=== PATIENT | male | born 1945 | race Caucasian/White ===

== ENCOUNTER → 2016-10-09 | Outpatient (CLI) | payer MEDICARE, BC, OTHER ==
[~2016-10-09] VITALS: Ht 185.4 cm; Wt 76.0 kg
[~2016-10-09] MED LIST: ALLE180T33 PO; COLA100C PO; FINA5TAB2 PO; FLON0.054; FLUT1POW2; GAVISUS PO; GLUC1CAP9 PO; LIDOCAINE 2% INJ 100 MG/5 ML SDV (FOR ANES.) As Ordered ONE; LIPI10TA PO; METO10TA2 PO; NS 1,000 ML IV SCH; OMEP20CA3 PO; PANT40TA2 PO; PROPOFOL 200 MG/20 ML VIAL As Ordered ONE; SALM10002 PO; SIME1CAP PO; SUCR1TA PO; SYST0.3G OP; TRAV04OPD OU; TUMS500C PO; TYLE325T5 PO; VITA10002 PO; VITATAB54 PO; VITMTA PO; flaxseed meal PO
--- NOTE | 2016-10-09 07:44 | ROOR ---
Patient Name: Pola Acuna Procedure Date: 10/09/2016 7:30 AM Date of : 1945 Age: 71 Room: [facility] Gender: Male Note Status: Finalized Procedure: Upper GI endoscopy Indications: Heartburn, Failure to respond to medical treatment Providers: Phan MACHADO MD Referring MD: Tyrone Cardenas MD Requesting Provider: Medicines: Monitored Anesthesia Care Complications: No immediate complications. Procedure: Pre-Anesthesia Assessment: - The heart rate, respiratory rate, oxygen saturations, blood pressure, adequacy of pulmonary ventilation, and response to care were monitored throughout the procedure. The Endoscope was introduced through the mouth, and advanced to the second part of duodenum. The upper GI endoscopy was accomplished without difficulty. The patient tolerated the procedure well. Findings: Diffuse candidiasis was found in the entire esophagus. The exam was otherwise without abnormality. Impression: - Monilial esophagitis. - The examination was otherwise normal. - No specimens collected. Recommendation: - Nystatin suspension 100,000 units PO QID for 2 weeks. - (the script was sent to your pharmacy on file) Phan Machado MD Phan MACHADO MD 10/09/2016 7:43:19 AM This report has been signed electronically. Number of Addenda: 0 Note Initiated On: 10/09/2016 7:30 AM Estimated Blood Loss: Estimated blood loss: none.
--- NOTE | 2016-10-09 08:08 | ROOR ---
Patient Name: Pola Acuna Procedure Date: 10/09/2016 7:33 AM Date of : 1945 Age: 71 Room: [facility] Gender: Male Note Status: Finalized Procedure: Colonoscopy Indications: High risk colon cancer surveillance: Personal history of colonic polyps Providers: Phan MACHADO MD Referring MD: Tyrone Cardenas MD Requesting Provider: Medicines: Monitored Anesthesia Care Complications: No immediate complications. Procedure: Pre-Anesthesia Assessment: - The heart rate, respiratory rate, oxygen saturations, blood pressure, adequacy of pulmonary ventilation, and response to care were monitored throughout the procedure. The Colonoscope was introduced through the anus and advanced to the cecum, identified by appendiceal orifice and ileocecal valve. The colonoscopy was performed without difficulty. The patient tolerated the procedure well. The quality of the bowel preparation was fair. Findings: The perianal and digital rectal examinations were normal. A 10 mm polyp was found in the cecum. The polyp was sessile. The polyp was removed with a piecemeal technique using a cold snare. Resection and retrieval were complete. A 6 mm polyp was found in the ascending colon. The polyp was flat. The polyp was removed with a cold snare. Resection and retrieval were complete. (EXAM: Complete, PREP: Fair/Adequate) Impression: - (EXAM: Complete, PREP: Fair/Adequate) - One 10 mm polyp in the cecum, removed piecemeal using a cold snare. Resected and retrieved. - One 6 mm polyp in the ascending colon, removed with a cold snare. Resected and retrieved. - Moderate internal hemorrhoids. - The exam was otherwise normal to the cecum. Recommendation: - Telephone endoscopist for pathology results in 2 weeks. - Repeat colonoscopy in 1 year because the bowel preparation was suboptimal. - Repeat colonoscopy in 1 year for surveillance after piecemeal polypectomy. Phan Machado MD Phan MACHADO MD 10/09/2016 8:08:15 AM This report has been signed electronically. Number of Addenda: 0 Note Initiated On: 10/09/2016 7:33 AM Estimated Blood Loss: Estimated blood loss: none.
[2016-10-09 10:17] VITALS: BP 110/69
== END ==
LOC: M OPP 05:59
PROVIDERS: ATTEND Internal Medicine Gastroenterology
DX: Z09 Encounter for follow-up examination after completed treatment for conditions other than malignant neoplasm (principal); D12.0 Benign neoplasm of cecum; D12.2 Benign neoplasm of ascending colon; K64.8 Other hemorrhoids; R12 Heartburn; B37.81 Candidal esophagitis; I95.9 Hypotension, unspecified; M48.00 Spinal stenosis, site unspecified; I49.9 Cardiac arrhythmia, unspecified; E78.00 Pure hypercholesterolemia, unspecified; K74.60 Unspecified cirrhosis of liver; M19.90 Unspecified osteoarthritis, unspecified site; H40.9 Unspecified glaucoma; G62.9 Polyneuropathy, unspecified; Z87.891 Personal history of nicotine dependence; Z79.899 Other long term (current) drug therapy; Z79.51 Long term (current) use of inhaled steroids; Z88.1 Allergy status to other antibiotic agents

== ENCOUNTER → 2017-06-24 | Outpatient (REF) | payer MEDICARE, BC, OTHER ==
[~2017-06-24] MED LIST changes: -COLA100C PO; +COLA100C5 PO; -LIDOCAINE 2% INJ 100 MG/5 ML SDV (FOR ANES.) As Ordered ONE; -NS 1,000 ML IV SCH; -PROPOFOL 200 MG/20 ML VIAL As Ordered ONE
== END ==
LOC: M SMT 13:20
PROVIDERS: ATTEND Nurse Practitioner Women's Health
DX: N40.1 Benign prostatic hyperplasia with lower urinary tract symptoms (principal)
CPT/HCPCS: 81001; 87086; G0463

== ENCOUNTER 2017-09-02 07:40 | Day surgery (SDC) | payer MEDICARE, BC, OTHER ==
[~2017-09-02] VITALS: Ht 185.4 cm; Wt 78.0 kg
[~2017-09-02 07:40] MED LIST changes: +IPRA6SP
[2017-09-02] MEDS ORDERED: LR 1,000 ML IV SCH (08:00)
[2017-09-02] MEDS ORDERED: LevoFLOXacin IV 500 MG in APPROPRIATE DILUENT 1 EA IV ONE (08:00)
[2017-09-02] MEDS ORDERED: ONDANSETRON 4MG/2ML VIAL (J2405) As Ordered ONE (09:56)
[2017-09-02] MEDS ORDERED: fentaNYL 100 MCG/2 ML INJECTION (J3010) As Ordered ONE (09:56)
[2017-09-02] MEDS ORDERED: LIDOCAINE 2% INJ 100 MG/5 ML SDV (FOR ANES.) As Ordered ONE (09:56)
[2017-09-02] MEDS ORDERED: PROPOFOL 200 MG/20 ML VIAL As Ordered ONE (09:56)
[2017-09-02] MEDS ORDERED: MIDAZOLAM INJ 2 MG/2 ML VIAL (J2250) As Ordered ONE (09:56)
[2017-09-02] MEDS ORDERED: LIDOCAINE 2% 5ML JELLY UROJET As Ordered ONE (10:24)
--- NOTE | 2017-09-02 11:30 | ROOPDOC ---
[facility] Report Of Operation Report of Operation DATE OF PROCEDURE: 09/02/17 PREPROCEDURE DIAGNOSES: Benign Prostatic Hypertrophy (BPH) with urinary obstruction and Lower Urinary Tract Symptoms (LUTS). POSTPROCEDURE DIAGNOSES: Benign Prostatic Hypertrophy (BPH) with urinary obstruction and Lower Urinary Tract Symptoms. (LUTS). PROCEDURE: UroLift Prostatic Urethral Lift, Cystoscopy. SURGEON: Telma Ford MD ELECTRICAL TEST TECHNICIAN: None ANESTHESIA: Conscious sedation. OPERATIVE INDICATIONS: This is a 72 year old male with BPH with LUTS refractory to medical therapy, here for the above procedure. DESCRIPTION OF PROCEDURE: The patient was brought to the operating room and conscious sedation was administered. He was then placed in the dorsal lithotomy position and prepped and draped in the usual sterile fashion. Lidocaine gel was then inserted into the urethra and held in for few minutes. A 20Fr cystoscope was inserted into the bladder. The cystoscopy bridge was replaced with a UroLift delivery device. The first treatment site was the patient's left side approximately 2cm distal to the bladder neck. The distal tip of the delivery device was then angled laterally approximately 20 degrees at this position to compress the lateral lobe. The trigger was pulled, thereby deploying the needle containing the implant through the prostate. The needle was then retracted, allowing one end of the implant to be delivered to the capsular surface of the prostate. The implant was then tensioned to assure capsular seating and removal of slack monofilament. The device was then angled back toward midline and slowly advanced proximally (typically 3 to 4mm) until cystoscopic verification of the monofilament being centered in the delivery bay. The urethral end piece was then affixed to the monofilament thereby tailoring the size of the implant. Excess filament was then severed. The delivery device was then readvanced into the bladder. The delivery device was then replaced within cystoscope and bridge and the implant location and opening effect was confirmed cystoscopically. The same procedure was then repeated on the right side, and two additional implants were delivered just proximal to the verumontanum, again one on the right and one on the left side of the prostate, following the same technique. Final cystoscopy was conducted first to inspect the location and state of each implant and second, to confirm the presence of a continuous anterior channel through the prostatic urethra with irrigation flow turned off. The bladder was then filled with irrigation fluid to assist the patient in a voiding trial after the procedure. All instruments were removed. The patient was then taken to the recovery room in stable condition. ESTIMATED BLOOD LOSS: Minimal. COMPLICATIONS: None. SPECIMEN: None. PLAN: The patient will follow up in clinic within the next week or two to assess for improvement in LUTS. TELMA FORD MD Sep 02, 2017 11:30
[2017-09-02 12:30] VITALS: BP 141/65
== END 2017-09-02 13:00 | disposition home or self-care (01) ==
LOC: M SDC 07:40
PROVIDERS: ATTEND Urology
DX: N40.1 Benign prostatic hyperplasia with lower urinary tract symptoms (principal); K44.9 Diaphragmatic hernia without obstruction or gangrene; K21.9 Gastro-esophageal reflux disease without esophagitis; Z79.899 Other long term (current) drug therapy; Z88.1 Allergy status to other antibiotic agents
CPT/HCPCS: 52441; 52442; J1956; J2250; J2405; J3010; L8699

== ENCOUNTER → 2018-05-23 | Outpatient (REF) | payer MEDICARE, OTHER ==
[2018-05-23 13:46] LABS: APPEARANCE, URINE CLEAR (CLEAR); BACTERIA, URINE AUTO NEGATIVE (NEGATIVE); BILIRUBIN, URINE AUTO NEGATIVE (NEGATIVE); BLOOD, URINE BLOOD NEGATIVE (NEGATIVE); COLOR, URINE YELLOW (YELLOW); GLUCOSE, URINE (UA) AUTO NEGATIVE (NEGATIVE); KETONE, URINE AUTO NEGATIVE (NEGATIVE); LEUKOCYTE ESTERASE, URINE AUTO NEGATIVE (NEGATIVE); MUCUS, URINE SMALL (NEGATIVE); NITRITE, URINE AUTO NEGATIVE (NEGATIVE); PROTEIN, URINE AUTO NEGATIVE (NEGATIVE); RBC, URINE AUTO 0 /HPF (0-3); SPECIFIC GRAVITY URINE AUTO 1.008 (1.002-1.035); SQUAMOUS EPITHELIAL CELL UR AU 0 /HPF (0-6); UROBILINOGEN, URINE AUTO 0.2 mg/dL (0.0-2.0); WBC, URINE AUTO 0 /HPF (0-3)
== END ==
LOC: M SMT 13:07
DX: R30.0 Dysuria (principal)
CPT/HCPCS: 81001

== ENCOUNTER → 2020-08-31 | Outpatient (CLI) | payer MEDICARE, OTHER, BC ==
[~2020-08-31] MED LIST changes: +ACET500T15 PO; +CYAN100049 PO; +FISH500C PO; +OMEP1CAP73 PO; -OMEP20CA3 PO; -PANT40TA2 PO; +PANT40TA29 PO; +POLY150C5; +SYSTSOL11 OU; -VITA10002 PO; +VITA100067 PO; +VITA1CAP25 PO
== END ==
LOC: M LABSMTC 12:36
PROVIDERS: ATTEND Anesthesiology
DX: Z01.812 Encounter for preprocedural laboratory examination (principal); Z20.828 Contact with and (suspected) exposure to other viral communicable diseases

== ENCOUNTER 2020-09-05 11:45 | Day surgery (SDC) | payer MEDICARE, BC, OTHER ==
[~2020-09-05] VITALS: Ht 180.3 cm; Wt 78.5 kg
[~2020-09-05 11:45] MED LIST changes: +NS 1,000 ML IV ONE
[2020-09-05] MEDS ORDERED: LIDOCAINE 2% 100MG/5ML SDV (FOR ANES.) As Ordered ONE (13:12)
[2020-09-05] MEDS ORDERED: propofoL 200 MG/20 ML VIAL As Ordered ONE (13:12)
--- NOTE | 2020-09-05 13:19 | ROOR ---
Patient Name: Pola Acuna Procedure Date: 09/05/2020 1:06 PM Date of : 1945 Age: 75 Room: [facility] Gender: Male Note Status: Finalized Procedure: Upper GI endoscopy Indications: Heartburn Providers: Phan MACHADO MD Referring MD: Supriya Bazan Np Requesting Provider: Medicines: Monitored Anesthesia Care Complications: No immediate complications. Procedure: Pre-Anesthesia Assessment: - The heart rate, respiratory rate, oxygen saturations, blood pressure, adequacy of pulmonary ventilation, and response to care were monitored throughout the procedure. The Endoscope was introduced through the mouth, and advanced to the second part of duodenum. The upper GI endoscopy was accomplished without difficulty. The patient tolerated the procedure well. Findings: The esophagus was normal. The stomach was normal. (large volume) The examined duodenum was normal. Impression: - Normal esophagus. - Normal stomach. - Normal examined duodenum. - No specimens collected. Recommendation: - Continue present medications. - Follow an antireflux regimen. - Observe patient's clinical course. Procedure Code(s): --- Professional --- 63778, Esophagogastroduodenoscopy, flexible, transoral; diagnostic, including collection of specimen(s) by brushing or washing, when performed (separate procedure) Diagnosis Code(s): --- Professional --- R12, Heartburn CPT copyright 2019 [employer]. All rights reserved. The codes documented in this report are preliminary and upon iron worker review may be revised to meet current compliance requirements. Phan Machado MD Phan MACHADO MD 09/05/2020 1:18:52 PM Electronically signed by Phan MACHADO MD Number of Addenda: 0 Note Initiated On: 09/05/2020 1:06 PM Estimated Blood Loss: Estimated blood loss: none.
--- NOTE | 2020-09-05 13:47 | ROOR ---
Patient Name: Pola Acuna Procedure Date: 09/05/2020 1:07 PM Date of : 1945 Age: 75 Room: [facility] Gender: Male Note Status: Finalized Procedure: Colonoscopy Indications: High risk colon cancer surveillance: Personal history of colonic polyps, Surveillance: History of piecemeal removal adenoma on last colonoscopy (< 3 yrs) Providers: Phan MACHADO MD Referring MD: Supriya Bazan Np Requesting Provider: Medicines: Monitored Anesthesia Care Complications: No immediate complications. Procedure: Pre-Anesthesia Assessment: - The heart rate, respiratory rate, oxygen saturations, blood pressure, adequacy of pulmonary ventilation, and response to care were monitored throughout the procedure. The Colonoscope was introduced through the anus and advanced to the terminal ileum, with identification of the appendiceal orifice and IC valve. The colonoscopy was performed without difficulty. The patient tolerated the procedure well. The quality of the bowel preparation was fair/adequate. Findings: The perianal and digital rectal examinations were normal. Two sessile polyps were found in the sigmoid colon. The polyps were small in size. These polyps were removed with a cold snare. Resection and retrieval were complete. Internal hemorrhoids were found during retroflexion. The hemorrhoids were moderate. The colon (entire examined portion) was moderately redundant. The exam was otherwise without abnormality on direct and retroflexion views. Impression: - Two small polyps in the sigmoid colon, removed with a cold snare. Resected and retrieved. - Internal hemorrhoids. - Redundant colon. - The examination was otherwise normal on direct and retroflexion views. Recommendation: - Repeat colonoscopy in 3 years for surveillance. (polyps and fair/suboptimal prep) - Telephone endoscopist for pathology results in 2 weeks. Procedure Code(s): --- Professional --- 32479, Colonoscopy, flexible; with removal of tumor(s), polyp(s), or other lesion(s) by snare technique Diagnosis Code(s): --- Professional --- Q43.8, Other specified congenital malformations of intestine K64.8, Other hemorrhoids K63.5, Polyp of colon Z86.010, Personal history of colonic polyps CPT copyright 2019 [employer]. All rights reserved. The codes documented in this report are preliminary and upon municipal firefighter review may be revised to meet current compliance requirements. Phan Machado MD Phan MACHADO MD 09/05/2020 1:47:06 PM Electronically signed by Phan MACHADO MD Number of Addenda: 0 Note Initiated On: 09/05/2020 1:07 PM Estimated Blood Loss: Estimated blood loss: none.
[2020-09-05 14:10] VITALS: BP 142/63
== END 2020-09-05 14:25 | disposition home or self-care (01) ==
LOC: M OPP 11:45
PROVIDERS: ATTEND Internal Medicine Gastroenterology
DX: Z12.11 Encounter for screening for malignant neoplasm of colon (principal); Z86.010 Personal history of colon polyps; R12 Heartburn; K63.5 Polyp of colon; K64.8 Other hemorrhoids; Q43.8 Other specified congenital malformations of intestine; K44.9 Diaphragmatic hernia without obstruction or gangrene; D50.9 Iron deficiency anemia, unspecified; M19.90 Unspecified osteoarthritis, unspecified site; M48.00 Spinal stenosis, site unspecified; G62.9 Polyneuropathy, unspecified; I95.9 Hypotension, unspecified; Z87.891 Personal history of nicotine dependence; Z88.1 Allergy status to other antibiotic agents; Z88.8 Allergy status to other drugs, medicaments and biological substances; Z91.09 Other allergy status, other than to drugs and biological substances; Z79.899 Other long term (current) drug therapy; Z80.0 Family history of malignant neoplasm of digestive organs; Z80.1 Family history of malignant neoplasm of trachea, bronchus and lung; Z83.3 Family history of diabetes mellitus; Z80.49 Family history of malignant neoplasm of other genital organs; Z82.3 Family history of stroke; Z83.6 Family history of other diseases of the respiratory system; Z81.8 Family history of other mental and behavioral disorders